=== PATIENT | male | born 1985 | race Two or more races ===

== ENCOUNTER 2024-02-19 10:25 | Outpatient (AMB) | payer OTHER, SELFPAY ==
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
[2024-02-19 10:29] VITALS: BMI 39.2
== END 2024-02-19 11:17 | disposition home or self-care (01) ==
LOC: HO.HOS 10:26
PROVIDERS: PCP Internal Medicine; Visit Provider Physician Assistant
DX: M24.9 Joint derangement, unspecified (principal); S43.002A Unspecified subluxation of left shoulder joint, initial encounter
CPT/HCPCS: 99203; G2211

== ENCOUNTER 2024-02-19 12:16 | Outpatient (REF) | payer OTHER, SELFPAY | END 2024-02-19 12:17 | disposition home or self-care (01) | LOC: HO.HOSX 12:16 | PROVIDERS: Visit Provider Physician Assistant | DX: M25.512 Pain in left shoulder (principal) | CPT/HCPCS: 73030 ==

== ENCOUNTER 2024-03-13 11:56 | Outpatient (REF) | payer OTHER, SELFPAY ==
--- NOTE | ~2024-03-13 | MR_ITS ---
EXAMINATION: MR SHOULDER WITH CONTRAST, LEFT CLINICAL INFORMATION: Left shoulder pain. Instability. Decreased range of motion. COMPARISON: Left shoulder fluoroscopic arthrography done earlier the same day and left shoulder radiographs dated 03/13/2024. TECHNIQUE: MRI of the shoulder was performed following the intra-articular administration of a dilute gadolinium-containing solution (arthrogram) on a high-field scanner. FINDINGS: ROTATOR CUFF: Mild supraspinatus and infraspinatus tendinosis. Articular surface partial tearing involving the majority of the supraspinatus tendon with extension into the anterior aspect of the infraspinatus tendon measuring approximately 3.0 x 1.6 cm (AP x ML). No full-thickness rotator cuff tendon tear or extension of contrast into the subacromial-subdeltoid bursa. No muscle atrophy or fatty infiltration. BICEPS: Intact. CORACOACROMIAL ARCH: The undersurface of the acromion is flat with no subacromial spur. Moderate acromioclavicular osteoarthritis. LABRUM/CAPSULE: Linear contrast within the undersurface of the superior, posterosuperior, posterior, and posteroinferior labrum, consistent with nondisplaced undersurface tearing. Additional nondisplaced undersurface tear of the anterior and anterior inferior labrum. Mild thickening and edema of the joint capsule which can be seen in a setting of adhesive capsulitis. GLENOHUMERAL JOINT/MARROW: Intact articular cartilage. No acute osseous injury. MR/MR shoulder LT w con IMPRESSION: 1. Mild supraspinatus and infraspinatus tendinosis with articular surface partial tearing involving the majority of the supraspinatus tendon with extension into the anterior aspect of the infraspinatus tendon measuring 3.0 x 1.6 cm (AP x ML). No full-thickness rotator cuff tendon tear. 2. Moderate acromioclavicular osteoarthritis. 3. Nondisplaced undersurface tearing of the superior, posterosuperior, posterior, and posteroinferior labrum. Additional nondisplaced undersurface tear of the anterior and anterior inferior labrum. 4. Mild thickening and edema of the joint capsule which can be seen in a setting of adhesive capsulitis. Electronically signed by: Dusty West MD 03/28/2024 01:17 PM [facility]
--- NOTE | ~2024-03-13 | FL_ITS ---
LEFT SHOULDER ARTHROGRAM INDICATIONS: Left shoulder pain. Intra-articular gadolinium injection is needed prior to MRI. PROCEDURE: Risks and benefits and possible complications were discussed with the patient and the consent form was signed. The patient was placed supine on the fluoroscopy table. The left shoulder was prepped and draped in normal sterile fashion. 1% buffered lidocaine was used for anesthesia. A 22-gauge spinal needle was used to access the shoulder joint. Intra-articular position of the needle within the shoulder joint was verified using 5 cc of Omnipaque 300. A total of 10 mL of gadolinium/saline (1:200) contrast mixture was then injected into the shoulder joint. The needle was then removed and a Band-Aid was applied to the injection site. The patient tolerated the procedure well and was sent to MRI. There were no immediate complications. FL/FL arthrogram shoulder LT IMPRESSION: Successful fluoroscopic guided intra-articular instillation of dilute gadolinium into the left shoulder joint. Patient will undergo subsequent left shoulder MRI. The procedure was performed by segundo Conrad PA-C, and directly supervised by Dr. Goodman. Electronically signed by: Nabil Goodman MD 03/13/2024 02:57 PM [facility]
[2024-03-13] MEDS: gadobutroL 2 ML VIAL IVPUSH (15:14)
== END 2024-03-13 11:57 | disposition home or self-care (01) ==
LOC: HO.XRAY 11:56
PROVIDERS: PCP Internal Medicine; Visit Provider Physician Assistant
DX: M25.312 Other instability, left shoulder (principal)
CPT/HCPCS: 23350; 73040; 73222; A9585

== ENCOUNTER → 2024-03-13 12:50 | Outpatient (BNV) | payer OTHER, SELFPAY | PROVIDERS: PCP Internal Medicine; Visit Provider Physician Assistant Surgical | DX: M25.512 Pain in left shoulder (principal) | CPT/HCPCS: 23350; 73040 ==

== ENCOUNTER 2024-05-06 13:20 | Outpatient (AMB) | payer OTHER, SELFPAY ==
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
[2024-05-06 13:26] VITALS: BMI 39.2
== END 2024-05-06 13:50 | disposition home or self-care (01) ==
PROVIDERS: PCP Internal Medicine; Visit Provider Physician Assistant
DX: S43.002A Unspecified subluxation of left shoulder joint, initial encounter (principal)
CPT/HCPCS: 99213; G2211